=== PATIENT | male | born 1995 | race American Indian/Alaskan Native ===

== ENCOUNTER 2018-03-25 23:06 | Emergency (ER) | payer SELFPAY ==
[2018-03-26] MEDS ORDERED: ZOFRAN IV ONE (00:42)
[2018-03-26] MEDS ORDERED: TORADOL IV ONE (00:42)
[2018-03-26] MEDS ORDERED: ZOFRAN ONE (00:46)
[2018-03-26] MEDS ORDERED: TORADOL ONE (00:46)
[2018-03-26 00:50] LABS: Basophils % (Auto) 0.3 % (0.0-1.8); Eosinophils % (Auto) 0.1 % (0.0-4.3); Hemoglobin 14.7 gm/dl (11.8-15.2); Lymphocytes # (Auto) 2.5 K/mm3 (1.2-5.4); Lymphocytes % (Auto) 17.4 % (13.4-35.0); Mean Corpuscular HGB Conc 33 % (32-34); Mean Corpuscular Hemoglobin 32 pg (28-32); Mean Corpuscular Volume 95 fl (84-94); Monocytes # (Auto) 1.2 K/mm3 (0.0-0.8); Monocytes % (Auto) 8.7 % (0.0-7.3); Platelet Count 206 K/mm3 (140-440); Red Blood Count 4.66 M/mm3 (3.65-5.03); Red Cell Distribution Width 13.8 % (13.2-15.2)
[2018-03-26 01:06] LABS: Alanine Aminotransferase 11 units/L (7-56); Albumin 4.5 g/dL (3.9-5); BUN/Creatinine Ratio 10; Blood Urea Nitrogen 8 mg/dL (9-20); Calcium 9.4 mg/dL (8.4-10.2); Hemolysis Index 18
[2018-03-26 02:30] LABS: Bacteria,Urine 2+ /HPF (Negative); Bilirubin,Urine NEG (Negative); Blood,Urine MOD (Negative); Color,Urine Yellow (Yellow); Mucus,Urine 3+ /HPF
[2018-03-26 02:34] LABS: WBC,Urine > 182.0 /HPF (0.0-6.0)
--- NOTE | 2018-03-26 02:38 | Emergency Department Report ---
ED Male HPI - General Chief complaint: Urogenital-Male Stated complaint: WEAKNESSS LEG PAIN Time Seen by Provider: 03/26/18 02:22 Source: patient Mode of arrival: Ambulatory Limitations: No Limitations - History of Present Illness MD Complaint: testicle pain, testicle swelling -: days(s) (2) Location: right testicle Radiation: other (right groin) Severity: moderate Severity scale (0 -10): 6 Quality: sharp Consistency: constant Improves with: none Worsens with: none nausea/vomiting - Related Data Sexually active: Yes Previous Rx's Medication Instructions Recorded Last Taken Type Acetaminophen [Tylenol Arthritis] 650 mg PO Q6HR PRN #30 tablet.er 03/26/18 Unknown Rx Ibuprofen [Motrin] 600 mg PO Q8H PRN #30 tablet 03/26/18 Unknown Rx Levofloxacin [Levaquin] 500 mg PO QDAY #7 tablet 03/26/18 Unknown Rx Metoclopramide [Reglan] 10 mg PO QID PRN #30 tablet 03/26/18 Unknown Rx Allergies Allergy/AdvReac Type Severity Reaction Status Date / Time No Known Allergies Allergy Verified 02/18/15 11:10 ED Review of Systems ROS: Stated complaint: WEAKNESSS LEG PAIN Other details as noted in HPI Comment: All other systems reviewed and negative Constitutional: denies: chills, fever Eyes: denies: vision change ENT: denies: ear pain Respiratory: denies: cough, shortness of breath Cardiovascular: denies: chest pain, palpitations Endocrine: no symptoms reported Gastrointestinal: abdominal pain, nausea, vomiting Genitourinary: urgency, dysuria, frequency, testicular pain Musculoskeletal: denies: back pain, joint swelling Skin: denies: rash, change in color Neurological: denies: headache, numbness Psychiatric: denies: anxiety, depression, auditory hallucinations Hematological/Lymphatic: denies: easy bleeding, easy bruising ED Past Medical Hx - Past Medical History Previous Medical History?: No - Surgical History Past Surgical History?: No - Social History Smoking Status: Current Every Day Smoker Substance Use Type: Marijuana - Medications Home Medications: Home Medications Medication Instructions Recorded Confirmed Last Taken Type Acetaminophen [Tylenol Arthritis] 650 mg PO Q6HR PRN #30 tablet.er 03/26/18 Unknown Rx Ibuprofen [Motrin] 600 mg PO Q8H PRN #30 tablet 03/26/18 Unknown Rx Levofloxacin [Levaquin] 500 mg PO QDAY #7 tablet 03/26/18 Unknown Rx Metoclopramide [Reglan] 10 mg PO QID PRN #30 tablet 03/26/18 Unknown Rx ED Physical Exam - General Limitations: No Limitations General appearance: alert, in no apparent distress - Head Head exam: Present: atraumatic, normocephalic, normal inspection - Eye Eye exam: Present: normal appearance, PERRL, EOMI Pupils: Present: normal accommodation - ENT ENT exam: Present: normal exam, normal orophraynx, mucous membranes moist - Neck Neck exam: Present: normal inspection, full ROM. Absent: tenderness - Respiratory Respiratory exam: Present: normal lung sounds bilaterally. Absent: respiratory distress, wheezes, rhonchi - Cardiovascular Cardiovascular Exam: Present: regular rate, normal rhythm, normal heart sounds - GI/Abdominal GI/Abdominal exam: Present: soft, normal bowel sounds. Absent: distended, tenderness, guarding, rebound - exam: Present: scrotal swelling (right side. 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)) - Extremities Exam Extremities exam: Absent: normal inspection, full ROM, normal capillary refill - Back Exam Back exam: Present: normal inspection, full ROM - Neurological Exam Neurological exam: Present: alert, oriented X3, CN II-XII intact - Psychiatric Psychiatric exam: Present: normal affect, normal mood, anxious - Skin Skin exam: Present: warm, dry, intact, normal color ED Course Vital Signs 03/25/18 03/26/18 23:59 11:21 Temperature 99.6 F 98.6 F Pulse Rate 58 L 63 Respiratory 18 16 Rate Blood Pressure 146/91 Blood Pressure 112/52 [Right] O2 Sat by Pulse 100 98 Oximetry - Reevaluation(s) Reevaluation #1: 03/26/18 05:55 Patient care was transferred to Dr. Kessler at shift change pending CT scan of the abdomen and pelvis with IV and PO contrast prior to disposition. ED Medical Decision Making - Lab Data Result diagrams: 03/26/18 00:42 03/26/18 00:42 - Radiology Data Radiology results: report reviewed, image reviewed - Medical Decision Making Right Testicular Swelling. Critical care attestation.: If time is entered above; I have spent that time in minutes in the direct care of this critically ill patient, excluding procedure time. ED Disposition Clinical Impression: Acute epididymitis, Epididymitis Abdominal pain Qualifiers: Abdominal location: right lower quadrant Qualified Code(s): R10.31 - Right lower quadrant pain UTI (urinary tract infection) Qualifiers: Urinary tract infection type: acute cystitis Hematuria presence: without hematuria Qualified Code(s): N30.00 - Acute cystitis without hematuria Disposition: TO HOME OR SELFCARE Is pt being admited?: No Does the pt Need Aspirin: No Condition: Stable Instructions: Epididymitis (ED) Additional Instructions: Cultures were sent today, and results will be available next 3-5 days. Please have your primary care doctor call the medical records department to obtain your culture results. Take the antibiotic therapy as directed. Take the nausea medication and pain medication as directed. I recommend outpatient testing for sexually transmitted diseases, including hepatitis, syphilis and HIV. I also recommend that you abstain from sexual activity until you have completed her antibiotic therapy, a physician states that it is safe for you to resume sexual activity, and any partners that you have been sexually active with have been tested/treated/evaluated for sexual transmitted diseases. Please follow-up with physician within 3-5 days. I recommend that you return to the ER right away with worsening pain, migration of pain, intractable nausea/vomiting, inability tolerate liquid feeds. Prescriptions: Acetaminophen [Tylenol Arthritis] 650 mg PO Q6HR PRN #30 tablet.er PRN Reason: Pain Ibuprofen [Motrin] 600 mg PO Q8H PRN #30 tablet PRN Reason: Pain Levofloxacin [Levaquin] 500 mg PO QDAY #7 tablet Metoclopramide [Reglan] 10 mg PO QID PRN #30 tablet PRN Reason: Nausea Referrals: [facility] [Outside] - 3-5 Days PRIMARY MD MARITA [Primary Care Provider] - 3-5 Days CAITLYN GANT MD [Staff Physician] - 3-5 Days Forms: STI Treatment and Prevention
[2018-03-26] MEDS ORDERED: XYLOCAINE 1% MPF 5 mL INFILTRATI ONE (02:39)
[2018-03-26] MEDS ORDERED: ZITHROMAX PO ONE (02:39)
[2018-03-26] MEDS ORDERED: ROCEPHIN IM ONE (02:39)
[2018-03-26] MEDS ORDERED: ZOFRAN ODT PO ONE (02:40)
[2018-03-26] MEDS ORDERED: LEVAQUIN PO ONE (03:57)
[2018-03-26] MEDS ORDERED: REGLAN PO ONE (03:58)
[2018-03-26] MEDS ORDERED: ATIVAN ONE (08:28)
[2018-03-26] MEDS ORDERED: KEPPRA 1,000 MG/NS 0.75% 100ML 1,000 MG/100 ML BAG IV ONE (08:28)
--- NOTE | 2018-03-26 11:05 | Event Note ---
Date: 03/26/18 The patient is reevaluated by myself. There is no abdominal tenderness, rebound or guarding. There is negative Rovsing sign. He is tolerating liquid feeds. He reports one sexual contact in the past 2 months, with vaginal and anal intercourse. He has already been treated empirically for gonorrhea, chlamydia, given history of anal intercourse, I will also discharged with a prescription for Levaquin pending culture results. Anticipatory guidance was provided to the patient as far as STD surveillance as an outpatient, he will be discharged at this time, return precautions are reviewed. the CT scan of the abdomen and pelvis did not demonstrate obvious evidence of appendicitis given his lack of abdominal tenderness, rebound or guarding, benign physical examination, clinically I think appendicitis is very unlikely at this time., Vital Signs 03/25/18 23:59 Temperature 99.6 F Pulse Rate 58 L Respiratory 18 Rate Blood Pressure 146/91 O2 Sat by Pulse 100 Oximetry Labs 03/26/18 03/26/18 03/26/18 00:42 00:42 01:37 WBC 14.3 H RBC 4.66 Hgb 14.7 Hct 44.0 MCV 95 H MCH 32 MCHC 33 RDW 13.8 Plt Count 206 Lymph % (Auto) 17.4 [place] % (Auto) 8.7 H Eos % (Auto) 0.1 Baso % (Auto) 0.3 Lymph # 2.5 [place] # 1.2 H Eos # 0.0 Baso # 0.0 Seg Neutrophils % 73.5 H Seg Neutrophils # 10.5 H Sodium 143 Potassium 3.8 Chloride 101.0 Carbon Dioxide 28 Anion Gap 18 BUN 8 L Creatinine 0.8 Estimated GFR > 60 BUN/Creatinine Ratio 10 Glucose 100 Calcium 9.4 Total Bilirubin 0.90 AST 19 ALT 11 Alkaline Phosphatase 103 Total Protein 8.1 Albumin 4.5 Albumin/Globulin Ratio 1.3 Urine Color Yellow Urine Turbidity Cloudy Urine pH 5.0 Ur Specific [place] 1.027 Urine Protein 100 mg/dl Urine Glucose (UA) Neg Urine Ketones Tr Urine Blood Mod Urine Nitrite Neg Urine Bilirubin Neg Urine Urobilinogen 4.0 Ur Leukocyte Esterase Lg Urine WBC (Auto) > 182.0 H Urine RBC (Auto) 32.0 U Epithel Cells (Auto) 3.0 Urine Bacteria (Auto) 2+ Urine WBC Clumps 2+ Ur Transition Epith Cell 1 Urine Mucus 3+
[2018-03-26 11:22] VITALS: BP 112/52
--- NOTE | 2018-03-30 14:16 | Ultrasound Report ---
FINAL REPORT EXAM: US TESTICULAR DOPPLER COMP HISTORY: swollen testicles TECHNIQUE: Directed sonography of the scrotum. PRIORS: None. FINDINGS: Right testicle measures 5 x 2.6 x 3.6 cm. Left testicle measures 5.1 x 2.5 x 3.2 cm. Normal homogeneous echogenicity. No intratesticular masses. Blood flow present bilaterally. Right epididymis diffusely enlarged and hyperemic. Left epididymis grossly unremarkable. Very small right hydrocele may be reactive. No other abnormal fluid collections. IMPRESSION: 1. Findings which may represent nonspecific postinflammatory change involving right epididymis or epididymitis. Correlate clinically. 2. No intratesticular masses or evidence of torsion.
--- NOTE | 2018-03-30 14:16 | Cat Scan Report ---
FINAL REPORT EXAM: CT ABDOMEN PELVIS W CON HISTORY: abdominal pain/ TECHNIQUE: CT abdomen and pelvis performed. Images extend from diaphragm to pubic symphysis. 100 cc Omnipaque 300 IV was administered. No oral contrast was administered. Coronal and sagittal reformatted images were obtained. PRIORS: None. FINDINGS: The visualized aspects of the lung bases are clear. The visualized liver, spleen, pancreas, adrenal glands and kidneys demonstrate no significant abnormalities. There is no abdominal aortic aneurysm. There is no evidence of intestinal obstruction. The appendix is not specifically identified with certainty. Structure in the iliac region may be a segment of normal appendix. There is some mild wall thickening of the gastric antrum. There is fluid containing mildly prominent duodenum, scattered fluid containing nondilated bowel loops and fluid containing nondilated ascending and transverse colon. Obstruction unlikely. These findings could reflect gastroenteritis/enterocolitis with or without antral gastritis. There are no abnormal fluid collections seen. There is no free intraperitoneal air. The bladder is unremarkable. There is no abnormal fluid collection or mass seen in the pelvis IMPRESSION: Mild wall thickening of the gastric antrum with mild fluid distention of the duodenum. Fluid containing nondilated bowel loops and some fluid in nondilated colon. These findings could represent gastroenteritis/enterocolitis with or without antral gastritis.
== END 2018-03-26 11:28 | disposition home or self-care (01) ==
LOC: ED 23:06
DX: N45.1 Epididymitis (principal); R10.31 Right lower quadrant pain; N30.00 Acute cystitis without hematuria; F17.200 Nicotine dependence, unspecified, uncomplicated; F12.90 Cannabis use, unspecified, uncomplicated
CPT/HCPCS: 36415; 74177; 80053; 81001; 85025; 87086; 93975; 96372; 96374; 96375; 99284; J0696; J1885; J1953; J2405; Q9967; J2060; Q0162

== ENCOUNTER 2020-05-05 01:50 | Emergency (ER) | payer SELFPAY ==
[2020-05-05 02:06] VITALS: BP 104/52
--- NOTE | 2020-05-05 08:17 | Emergency Department Report ---
- General Chief complaint: Extremity Injury, Upper Stated complaint: SPIDER BITE RT ARM Time Seen by Provider: 05/05/20 07:49 Source: patient Mode of arrival: Ambulatory Limitations: No Limitations - History of Present Illness Initial comments: 25-year-old F Faro[place] male resents emergency department complaining of a suspected spider bite to his right upper extremity which he states feels similar to previous spider bites that he had incurred. Area is tender with with mild erythema new request some antimicrobial therapy MD complaint: insect bite/sting -: Sudden, This morning Tetanus Up to Date: yes Location: RUE (right forearm) Severity: mild, moderate Quality: aching, dull Consistency: constant Improves with: none Worsens with: none Context: none Associated symptoms: denies other symptoms, itching Treatments Prior to Arrival: none - Related Data Previous Rx's Medication Instructions Recorded Last Taken Type Acetaminophen [Tylenol Arthritis] 650 mg PO Q6HR PRN #30 tablet.er 03/26/18 Unknown Rx Ibuprofen [Motrin] 600 mg PO Q8H PRN #30 tablet 03/26/18 Unknown Rx Metoclopramide [Reglan] 10 mg PO QID PRN #30 tablet 03/26/18 Unknown Rx levoFLOXacin [Levaquin] 500 mg PO QDAY #7 tablet 03/26/18 Unknown Rx Sulfamethoxazole/Trimethoprim 1 each PO BID #20 tablet 05/05/20 Unknown Rx [Bactrim Ds] Allergies Allergy/AdvReac Type Severity Reaction Status Date / Time No Known Allergies Allergy Verified 02/18/15 11:10 Abscess Boil HPI - HPI Chief Complaint: Extremity Injury, Upper Stated Complaint: SPIDER BITE RT ARM Time Seen by Provider: 05/05/20 07:49 Home Medications: Previous Rx's Medication Instructions Recorded Last Taken Type Acetaminophen [Tylenol Arthritis] 650 mg PO Q6HR PRN #30 tablet.er 03/26/18 Unknown Rx Ibuprofen [Motrin] 600 mg PO Q8H PRN #30 tablet 03/26/18 Unknown Rx Metoclopramide [Reglan] 10 mg PO QID PRN #30 tablet 03/26/18 Unknown Rx levoFLOXacin [Levaquin] 500 mg PO QDAY #7 tablet 03/26/18 Unknown Rx Sulfamethoxazole/Trimethoprim 1 each PO BID #20 tablet 05/05/20 Unknown Rx [Bactrim Ds] Allergies/Adverse Reactions: Allergies Allergy/AdvReac Type Severity Reaction Status Date / Time No Known Allergies Allergy Verified 02/18/15 11:10 ED Review of Systems ROS: Stated complaint: SPIDER BITE RT ARM Other details as noted in HPI Comment: All other systems reviewed and negative ED Past Medical Hx - Past Medical History Previous Medical History?: No - Surgical History Past Surgical History?: No - Social History Smoking Status: Never Smoker Substance Use Type: Marijuana - Medications Home Medications: Home Medications Medication Instructions Recorded Confirmed Last Taken Type Acetaminophen [Tylenol Arthritis] 650 mg PO Q6HR PRN #30 tablet.er 03/26/18 Unknown Rx Ibuprofen [Motrin] 600 mg PO Q8H PRN #30 tablet 03/26/18 Unknown Rx Metoclopramide [Reglan] 10 mg PO QID PRN #30 tablet 03/26/18 Unknown Rx levoFLOXacin [Levaquin] 500 mg PO QDAY #7 tablet 03/26/18 Unknown Rx Sulfamethoxazole/Trimethoprim 1 each PO BID #20 tablet 05/05/20 Unknown Rx [Bactrim Ds] ED Physical Exam - General Limitations: No Limitations General appearance: alert, in no apparent distress - Head Head exam: Present: atraumatic, normocephalic - Eye Eye exam: Present: normal appearance, PERRL, EOMI Pupils: Present: normal accommodation - ENT ENT exam: Present: normal exam, mucous membranes moist - Neck Neck exam: Present: normal inspection - Respiratory Respiratory exam: Present: normal lung sounds bilaterally. Absent: respiratory distress - Cardiovascular Cardiovascular Exam: Present: regular rate, normal rhythm. Absent: systolic murmur, diastolic murmur, rubs, gallop - GI/Abdominal GI/Abdominal exam: Present: soft, normal bowel sounds - Rectal Rectal exam: Present: deferred - Extremities Exam Extremities exam: Present: normal inspection, tenderness, other - Expanded Upper Extremity Exam Right Forearm Wrist exam: Present: tenderness, swelling, erythema (Indurated area to the right forearm no discharge no fluctuance no no event no lymphangitis). Absent: abrasion, laceration, tenderness over anatomical snuff box, pain with axial thumb loading Hand Wrist exam: Present: normal inspection - Back Exam Back exam: Present: normal inspection - Neurological Exam Neurological exam: Present: alert, oriented X3 - Psychiatric Psychiatric exam: Present: normal affect, normal mood - Skin Skin exam: Present: warm, dry, intact, normal color. Absent: rash ED Course Vital Signs 05/05/20 02:04 Temperature 97.8 F Pulse Rate 71 Respiratory 20 Rate Blood Pressure 104/52 O2 Sat by Pulse 96 Oximetry ED Medical Decision Making - Medical Decision Making 25-year-old F [place] male with suspected spider bite to the left arm with area of induration swelling and pain plan is to to discharge home with with antimicrobial was advised on [id number] anti-microbial soap and and ointments. Is been advised to have the wound reevaluated in 2 to 3 days. He has no comorbidities and he reports no immunocompromising condition Critical care attestation.: If time is entered above; I have spent that time in minutes in the direct care of this critically ill patient, excluding procedure time. ED Disposition Clinical Impression: Insect bite, Cellulitis Disposition: - TO HOME OR SELFCARE Is pt being admited?: No Does the pt Need Aspirin: No Condition: Stable Instructions: Cellulitis (ED) Prescriptions: Sulfamethoxazole/Trimethoprim [Bactrim Ds] 1 each PO BID #20 tablet Referrals: PRIMARY CARE, [Primary Care Provider] - 2-3 Days (Wound reevaluation in 2 to 3 days) [facility] [Provider Group] - 2-3 Days
== END 2020-05-05 08:37 | disposition home or self-care (01) ==
LOC: ED 01:50
DX: S40.861A Insect bite (nonvenomous) of right upper arm, initial encounter (principal); L03.113 Cellulitis of right upper limb; W57.XXXA Bitten or stung by nonvenomous insect and other nonvenomous arthropods, initial encounter; Y93.89 Activity, other specified; Y92.89 Other specified places as the place of occurrence of the external cause; Y99.8 Other external cause status
CPT/HCPCS: 99282